=== PATIENT | female | born 1955 | race Caucasian/White ===

== ENCOUNTER → 2017-01-01 | Outpatient (CLI) | payer OTHER ==
[~2017-01-01] MED LIST: B-12 PO; BUPR300T4 PO; GLUCOSAMINE PO; HYDR-3138 PO; LISD60CA PO; MULT-516 PO
[2017-01-01 14:12] LABS: HEMOGLOBIN 14.8 g/dL (11.7-16.4)
[2017-01-01 14:37] LABS: BLOOD UREA NITROGEN 14 mg/dL (7-18)
[2017-01-01 14:40] LABS: ASPARTATE AMINO TRANSFERASE 23 U/L (15-37)
== END | disposition home or self-care (01) ==
LOC: STAR 13:13
PROVIDERS: ATTEND Orthopaedic Surgery Orthopaedic Surgery of the Spine
DX: Z01.810 Encounter for preprocedural cardiovascular examination (principal); M48.06 Spinal stenosis, lumbar region; M51.26 Other intervertebral disc displacement, lumbar region
CPT/HCPCS: 36415; 71020; 80053; 81001; 85025; 93005

== ENCOUNTER 2017-01-07 05:53 | Day surgery (SDC) | payer OTHER ==
[2017-01-01 13:35] VITALS: BP 144/94
[~2017-01-07] VITALS: Ht 167.6 cm; Wt 72.0 kg
[2017-01-07] MEDS ORDERED: NEOSPORIN OINT, 15GM ONE (06:44)
[2017-01-07] MEDS ORDERED: LACTATED RINGERS 1,000 ML IV SCH (06:44)
[2017-01-07] MEDS ORDERED: THROMBIN 5,000 UNIT VIAL TP ONE (06:44)
[2017-01-07] MEDS ORDERED: BUPIVACAINE/PF 0.5% ONE (06:44)
[2017-01-07] MEDS ORDERED: BUPIVACAINE/PF-EPI 0.25% 1:200K ONE (06:59)
[2017-01-07] MEDS ORDERED: LIDOCAINE 1%, 2ML SQ PRN (07:00)
[2017-01-07] MEDS ORDERED: SULF1TAB24 PO (07:08)
[2017-01-07] MEDS ORDERED: KETAMINE 10 MG/ML, 20ML ONE (07:19)
[2017-01-07] MEDS ORDERED: FENTANYL PF 250 MCG/5ML ONE (07:19)
[2017-01-07] MEDS ORDERED: MIDAZOLAM 1 MG/ML, 2ML ONE (07:19)
[2017-01-07] MEDS ORDERED: PROPOFOL 10 MG/ML, 50ML ONE (07:43)
[2017-01-07] MEDS ORDERED: PROPOFOL 10 MG/ML, 20ML ONE (07:43)
[2017-01-07] MEDS ORDERED: CEFAZOLIN 1,000 MG ONE (07:43)
[2017-01-07] MEDS ORDERED: SUCCINYLCHOLINE 20 MG/ML, 10ML ONE (07:43)
[2017-01-07] MEDS ORDERED: ONDANSETRON 2MG/ML, 2ML ONE (07:43)
[2017-01-07] MEDS ORDERED: DEXAMETHASONE 4 MG/ML, 5ML ONE (07:43)
[2017-01-07] MEDS ORDERED: CEFAZOLIN PMX 1GM/50ML 50 ML IVPB SCH (08:00)
[2017-01-07] MEDS ORDERED: DIPHENHYDRAMINE 50 MG/ML, 1ML IVPush PRN (08:00)
[2017-01-07] MEDS ORDERED: PHARMACY MAY ADJ FOR RENAL FX MC PRN (08:00)
[2017-01-07] MEDS ORDERED: HYDROcodone/APAP 10/325 MG TABLET PO PRN (08:00)
[2017-01-07] MEDS ORDERED: MAGNESIUM HYDROXIDE 8%, 30ML UDC PO PRN (08:00)
[2017-01-07] MEDS ORDERED: D5%-0.9% NACL+KCL 20MEQ 1,000 ML IV SCH (08:00)
[2017-01-07] MEDS ORDERED: OXYcodone/APAP 5/325MG TABLET PO PRN (08:00)
[2017-01-07] MEDS ORDERED: METHOCARBAMOL 750 MG TABLET PO PRN (08:00)
[2017-01-07] MEDS ORDERED: SENNA/DOCUSATE TABLET PO PRN (08:00)
[2017-01-07] MEDS ORDERED: morphine SULFATE 10 MG/ML, 1ML IVPush PRN (08:00)
[2017-01-07] MEDS ORDERED: hydrALAzine 20 MG/ML, 1ML IV PRN (08:30)
[2017-01-07] MEDS ORDERED: MIDAZOLAM 1 MG/ML, 2ML IV PRN (08:30)
[2017-01-07] MEDS ORDERED: LABETALOL 5MG/ML, 20ML IV PRN (08:30)
[2017-01-07] MEDS ORDERED: OXYcodone 5 MG/5 ML ORAL.SOL UDC PO PRN (08:30)
[2017-01-07] MEDS ORDERED: ALBUTEROL/IPRATROPIUM 2.5MG/0.5MG, 3 ML NPPB PRN (08:30)
[2017-01-07] MEDS ORDERED: METOCLOPRAMIDE 5 MG/ML, 2ML IV PRN (08:30)
[2017-01-07] MEDS ORDERED: PROMETHAZINE 25 MG/ML, 1ML IV PRN (08:30)
[2017-01-07] MEDS ORDERED: ONDANSETRON 2MG/ML, 2ML IVPush PRN (08:30)
[2017-01-07] MEDS ORDERED: ACETAMINOPHEN 325 MG TABLET PO PRN (08:30)
[2017-01-07] MEDS ORDERED: MEPERIDINE/PF 25MG/0.5ML IVPush PRN (08:30)
[2017-01-07] MEDS ORDERED: HYDROmorphone 1 MG/ML, 1ML IV PRN (08:30)
[2017-01-07] MEDS ORDERED: LISDEXAMFETAMINE DIMESYLATE 60 MG PO SCH (09:00)
[2017-01-07] MEDS ORDERED: BUPROPION HCL 300 MG PO SCH (09:00)
[2017-01-07] MEDS ORDERED: SULFAMETH./TRIMETHOPRIM DS 800MG/160MG TABLET PO SCH (09:00)
[2017-01-07] MEDS ORDERED: MULTIVITAMIN 1 TABLET PO SCH (09:00)
[2017-01-07] MEDS ORDERED: HYDROmorphone 1 MG/ML, 1ML ONE (09:12)
[2017-01-07] MEDS ORDERED: FENTANYL PF 100 MCG/2ML ONE (09:23)
[2017-01-07] MEDS ORDERED: HYDROmorphone 2 MG/ML, 1ML ONE (09:23)
[2017-01-07] MEDS ORDERED: ACETAMINOPHEN 650 MG/20.3 ML UDC ONE (09:23)
[2017-01-07] MEDS ORDERED: OXYcodone 5 MG/5 ML ORAL.SOL UDC ONE (09:23)
[2017-01-07] MEDS: FENTANYL PF 100 MCG/2ML IV PRN ×2 (09:45→10:00)
== END 2017-01-07 14:10 | disposition home or self-care (01) ==
LOC: OUT 05:53 → UNDOADMOB 08:22 → ORIP 08:22
PROVIDERS: ATTEND Orthopaedic Surgery Orthopaedic Surgery of the Spine
DX: M51.16 Intervertebral disc disorders with radiculopathy, lumbar region (principal); M48.06 Spinal stenosis, lumbar region; Z87.440 Personal history of urinary (tract) infections; Z90.710 Acquired absence of both cervix and uterus; Z72.89 Other problems related to lifestyle; Z87.891 Personal history of nicotine dependence
CPT/HCPCS: 63030; 63056; 72100; 81001; 87086; J0330; J0690; J1100; J1170; J2250; J2405; J2704; J3010; J3490; J7120